=== PATIENT | female | born 1985 | race Hispanic/Latino ===

== ENCOUNTER 2018-11-01 14:31 | Observation (INO) | payer BC ==
[~2018-11-01] VITALS: Ht 160 cm; Wt 72.1 kg
[2018-11-01 15:10] LABS: APPEARANCE,URINE CLOUDY (CLEAR); BILIRUBIN,URINE NEGATIVE (NEGATIVE); COLOR,URINE YELLOW (YELLOW); GLUCOSE, URINE (UA) NEGATIVE (NEGATIVE); KETONES,URINE NEGATIVE (NEGATIVE); LEUKOCYTE ESTERASE ,URINE LARGE (NEGATIVE); NITRATE,URINE NEGATIVE (NEGATIVE); OCCULT BLOOD,URINE NEGATIVE (NEGATIVE); PROTEIN,URINE NEGATIVE (NEGATIVE); UROBILINOGEN,URINE 0.2 mg/dL (0.2-1.0)
[2018-11-01 15:25] LABS: RBC,URINE 0-1 /HPF (0-1)
[2018-11-01 15:27] LABS: BACTERIA,URINE Moderate /HPF (None Seen); SQUAMOUS EPITHELIAL CELL,UR Moderate /HPF (0-2)
[2018-11-01] MEDS ORDERED: LACTATED RINGERS 1000ML 1,000 ML IV SCH (16:00)
[2018-11-01] MEDS ORDERED: TERBUTALINE SULFATE VIAL 1MG/ML SQ SCH (16:00)
== END 2018-11-01 17:52 | disposition home or self-care (01) ==
LOC: LDH 14:31
PROVIDERS: ADMIT Specialist; ATTEND Specialist
DX: O62.9 Abnormality of forces of labor, unspecified (principal); Z3A.35 35 weeks gestation of pregnancy
CPT/HCPCS: 81001; 96372; G0378 ×4; J3105; J7120 ×2; 96360; 96361

== ENCOUNTER 2018-11-14 11:46 | Observation (INO) | payer BC ==
[~2018-11-14] VITALS: Ht 160 cm; Wt 73.5 kg
[2018-11-14 12:55] LABS: APPEARANCE,URINE Clear (CLEAR); BILIRUBIN,URINE Negative (NEGATIVE); COLOR,URINE Yellow (YELLOW); GLUCOSE, URINE (UA) Negative (NEGATIVE); KETONES,URINE Trace mg/dL (NEGATIVE); LEUKOCYTE ESTERASE ,URINE Small (NEGATIVE); NITRATE,URINE Negative (NEGATIVE); OCCULT BLOOD,URINE Negative (NEGATIVE); PROTEIN,URINE Negative (NEGATIVE)
[2018-11-14 13:05] LABS: BACTERIA,URINE Few /HPF (None Seen); RBC,URINE 0-1 /HPF (0-1); SQUAMOUS EPITHELIAL CELL,UR Moderate /HPF (0-2)
[2018-11-14 13:35] LABS: HEMATOCRIT 33.8 % (36-48); MEAN CORPUSCULAR HEMOGLOBIN 26.9 pg (27.0-33.0); MEAN CORPUSCULAR HGB CONC 33.2 g/dL (32.0-36.0); MEAN CORPUSCULAR VOLUME 80.9 fL (79-99); NUCLEATED RED BLOOD CELLS 0.1 % (0.0-0.19); PLATELET COUNT (AUTO) 255 K/uL (130-400); RED BLOOD CELL COUNT(AUTO) 4.18 MIL/uL (4.00-5.50); WHITE BLOOD COUNT (AUTO) 10.3 K/uL (4.8-10.8)
[2018-11-14 14:28] VITALS: BP 120/70
== END 2018-11-14 14:47 | disposition home or self-care (01) ==
LOC: LDH 11:46
PROVIDERS: ADMIT Specialist; ATTEND Specialist
DX: O60.03 Preterm labor without delivery, third trimester (principal); Z3A.36 36 weeks gestation of pregnancy; Z79.899 Other long term (current) drug therapy
CPT/HCPCS: 36415; 81001; 84443; 85027; 93005; G0378 ×4

== ENCOUNTER 2019-10-30 06:56 | Day surgery (SDC) | payer BC ==
[2019-10-29 16:13] LABS: BASOPHILS % (AUTO) 0.4 % (0.0-5.0); EOSINOPHILS % (AUTO) 0.6 % (0.0-8.0); HEMATOCRIT 39.4 % (36-48); LYMPHOCYTES % (AUTO) 36.5 % (21.0-51.0); MEAN CORPUSCULAR HEMOGLOBIN 27.4 pg (27.0-33.0); MEAN CORPUSCULAR HGB CONC 32.2 g/dL (32.0-36.0); MEAN CORPUSCULAR VOLUME 85.1 fL (79-99); MONOCYTES % (AUTO) 4.7 % (3.0-13.0); NEUTROPHILS % (AUTO) 57.6 % (40.0-77.0); PLATELET COUNT (AUTO) 230 K/uL (130-400); RED BLOOD CELL COUNT(AUTO) 4.63 MIL/uL (4.00-5.50); WHITE BLOOD COUNT (AUTO) 10.5 K/uL (4.8-10.8)
[2019-10-29 16:14] VITALS: BP 110/67
[~2019-10-30] VITALS: Ht 160 cm; Wt 62.9 kg
[2019-10-30 07:25] VITALS: BP 100/72
[2019-10-30] MEDS ORDERED: FENTANYL CITRATE PF 50 MCG/1 ML 2ML VIAL ONE (07:51)
[2019-10-30] MEDS ORDERED: PROPOFOL 10 MG/ML 20ML VIAL IV ONE (07:51)
[2019-10-30] MEDS ORDERED: LIDOCAINE PF 2% 5ML ABBOJECT ONE (07:51)
[2019-10-30] MEDS ORDERED: ONDANSETRON HCL 4 MG/2 ML VIAL ONE (07:51)
[2019-10-30] MEDS ORDERED: MIDAZOLAM HCL 1 MG/ML 2ML VIAL ONE (07:51)
[2019-10-30] MEDS ORDERED: LACTATED RINGERS 1000ML 1,000 ML IV SCH (08:00)
[2019-10-30] MEDS ORDERED: EPHEDRINE SULFATE 50 MG/ML AMPULE ONE (08:11)
[2019-10-30] MEDS ORDERED: OXYTOCIN 10 USP UNITS/ML ONE (08:12)
[2019-10-30 09:45] VITALS: BP 98/64
[2019-10-30 10:00] VITALS: BP 96/57
[2019-10-30 10:15] VITALS: BP 106/63
--- NOTE | 2019-10-30 10:25 | NUR ---
DISCHARGE PT DISCHARGED VIA WHEELCHAIR WITH , PT STABLE, NO COMPLAINTS MADE, OB PAD REMAINED DRY, NO BLEEDING NOTED. DISCHARGE INSTRUCTIONS GIVEN TO AND PT, VERBALIZED UNDERSTANDING.
== END 2019-10-30 10:25 | disposition home or self-care (01) ==
LOC: DAH 06:56
PROVIDERS: ATTEND Specialist
DX: O02.1 Missed abortion (principal); Z72.89 Other problems related to lifestyle; Z82.49 Family history of ischemic heart disease and other diseases of the circulatory system; Z83.3 Family history of diabetes mellitus
CPT/HCPCS: 36415; 59820; 85025; 88305; A4215; A4221; A4222; A4223; A4663; A5120; A6260; J2001; J2250; J2405; J2590; J2704; J3010; J3490; J7030; J7120 ×3

== ENCOUNTER 2021-12-20 00:20 | Inpatient (IN) | payer BC ==
[~2021-12-20] VITALS: Ht 160 cm; Wt 73.9 kg
[2021-12-20] MEDS ORDERED: LACTATED RINGERS 1000ML 1,000 ML IV PRN (00:30)
[2021-12-20] MEDS ORDERED: OXYTOCIN-LR 20 UNITS/1000 ML 1,000 ML IV SCH ×2 (00:30→07:00)
[2021-12-20 01:01] LABS: APPEARANCE,URINE CLEAR (CLEAR); BILIRUBIN,URINE NEGATIVE (NEGATIVE); COLOR,URINE YELLOW (YELLOW); GLUCOSE, URINE (UA) NEGATIVE (NEGATIVE); KETONES,URINE NEGATIVE (NEGATIVE); LEUKOCYTE ESTERASE ,URINE NEGATIVE (NEGATIVE); NITRATE,URINE NEGATIVE (NEGATIVE); OCCULT BLOOD,URINE NEGATIVE (NEGATIVE); PROTEIN,URINE NEGATIVE (NEGATIVE); UROBILINOGEN,URINE 0.2 mg/dL (0.2-1.0)
[2021-12-20 01:25] LABS: MEAN CORPUSCULAR HEMOGLOBIN 26.1 pg (27.0-33.0); MEAN CORPUSCULAR HGB CONC 32.5 g/dL (32.0-36.0); MEAN CORPUSCULAR VOLUME 80.2 fL (79-99); RED BLOOD CELL COUNT(AUTO) 3.99 MIL/uL (4.00-5.50); RED CELL DISTRIBUTION WIDTH 13.9 % (11.0-15.5); WHITE BLOOD COUNT (AUTO) 12.1 K/uL (4.8-10.8)
[2021-12-20 01:26] VITALS: BP 116/75
[2021-12-20] MEDS ORDERED: AMPICILLIN 2GM+NS 100ML 100 ML IV SCH (01:30)
[2021-12-20 01:31] VITALS: BP 122/77
[2021-12-20] MEDS ORDERED: ROPIVACAINE 0.2% 100ML VIAL 100 ML EP SCH (02:30)
[2021-12-20] MEDS ORDERED: LACTATED RINGERS 500 ML 500 ML IV PRN (02:30)
[2021-12-20] MEDS ORDERED: EPHEDRINE SULFATE 50 MG/ML AMPULE IVP PRN (02:30)
[2021-12-20] MEDS ORDERED: NALOXONE HCL 0.4 MG/1 ML ML IV PRN (02:30)
[2021-12-20] MEDS ORDERED: AMPICILLIN 1GM+NS 50ML 50 ML IV SCH (05:30)
[2021-12-20] MEDS ORDERED: BENZOCAINE/LANOLIN/ALOE VERA 60 ML AEROSOL TP PRN (15:30)
[2021-12-20] MEDS ORDERED: MEASLES/MUMPS/RUBELLA VACCINE, LIVE 0.5 ML/VIAL SQ PRN (15:30)
[2021-12-20] MEDS ORDERED: LANOLIN 30GM OINTMENT TP PRN (15:30)
[2021-12-20] MEDS ORDERED: DIPH,PERTUSS(ACELL),TET VAC/PF 0.5 ML VIAL IM PRN (15:30)
[2021-12-20] MEDS ORDERED: WITCH HAZEL 1 PAD TP PRN (15:30)
[2021-12-20] MEDS: OXYTOCIN-LR 20 UNITS/1000 ML 1,000 ML IV SCH (16:16)
[2021-12-20] MEDS: IBUPROFEN 600 MG TABLET PO PRN ×2 (17:50→21:06)
[2021-12-20 19:30] VITALS: BP 108/60
[2021-12-20] MEDS: ACETAMINOPHEN 325 MG TAB PO PRN ×2 (20:04→23:35)
[2021-12-20] MEDS: DOCUSATE SODIUM 100 MG CAP PO SCH (21:05)
[2021-12-20 23:23] VITALS: BP 112/68
[2021-12-21 04:00] VITALS: BP 117/71
[2021-12-21] MEDS ORDERED: MIDAZOLAM HCL 1 MG/ML 2ML VIAL ONE (07:57)
[2021-12-21] MEDS ORDERED: SUCCINYLCHOLINE CHLORIDE 20 MG/ML 10 ML VIAL ONE ×3 (07:59→08:07)
[2021-12-21] MEDS ORDERED: LIDOCAINE PF 100MG/5ML (2%) SYRINGE 5ML ONE (07:59)
[2021-12-21] MEDS ORDERED: PROPOFOL 10 MG/ML 20ML VIAL IV ONE ×2 (07:59→08:17)
[2021-12-21] MEDS ORDERED: FENTANYL CITRATE PF 50 MCG/1 ML 2ML VIAL ONE (08:04)
[2021-12-21] MEDS ORDERED: DEXAMETHASONE SOD PHOSPHATE 10MG/ML 1ML VIAL ONE (08:15)
[2021-12-21] MEDS ORDERED: ONDANSETRON 4MG INJ ONE (08:15)
[2021-12-21] MEDS: DOCUSATE SODIUM 100 MG CAP PO SCH ×2 (09:00→10:41)
[2021-12-21] MEDS ORDERED: MEPERIDINE-PF 25 MG/ML SYG ONE (09:00)
[2021-12-21] MEDS ORDERED: MORPHINE 2 MG SYG ONE ×2 (09:05→09:36)
[2021-12-21] MEDS ORDERED: EPHEDRINE SULFATE 50 MG/ML AMPULE IVP PRN (10:00)
[2021-12-21] MEDS ORDERED: NALOXONE HCL 0.4 MG/1 ML ML IVP PRN ×3 (10:00)
[2021-12-21] MEDS ORDERED: ONDANSETRON 4MG INJ IVP PRN (10:00)
[2021-12-21] MEDS ORDERED: DiphenhydrAMINE HCL 50 MG/ML VIAL IVP PRN (10:00)
[2021-12-21 10:20] VITALS: BP 127/75
[2021-12-21] MEDS: IBUPROFEN 600 MG TABLET PO PRN ×2 (10:41→11:39)
[2021-12-21] MEDS: OXYTOCIN-LR 20 UNITS/1000 ML 1,000 ML IV SCH (11:21)
[2021-12-21] MEDS: ACETAMINOPHEN WITH CODEINE 1 TAB TAB PO PRN ×2 (12:38→17:22)
[2021-12-21 16:00] VITALS: BP 121/77
[2021-12-21] MEDS ORDERED: DIPH,PERTUSS(ACELL),TET VAC/PF 0.5 ML VIAL IM ONE (17:00)
== END 2021-12-21 18:30 | disposition home or self-care (01) | DRG 798 ==
LOC: EDH 00:20 → LDH 00:21 → OBSVTOIN 00:21 → EDH 00:29 → WSH 17:01
PROVIDERS: ADMIT Specialist; ATTEND Specialist
PROC: 10E0XZZ Delivery of Products of Conception, External Approach (ICD-10-PCS; principal; 2021-12-20)
PROC: 3E0S3BZ Introduction of Anesthetic Agent into Epidural Space, Percutaneous Approach (ICD-10-PCS; 2021-12-20)
PROC: 00HU33Z Insertion of Infusion Device into Spinal Canal, Percutaneous Approach (ICD-10-PCS; 2021-12-20)
PROC: 0UB70ZZ Excision of Bilateral Fallopian Tubes, Open Approach (ICD-10-PCS; 2021-12-21)
DX: O69.1XX0 Labor and delivery complicated by cord around neck, with compression, not applicable or unspecified (principal); Z37.0 Single live birth; Z3A.38 38 weeks gestation of pregnancy; Z30.2 Encounter for sterilization
CPT/HCPCS: 36415; 81003; 85027; 86592; 86850; 86900; 86901; 87340; 90715; A4314; G0378; J0290; J0330; J1100; J2001; J2175; J2250; J2405; J2590; J2704; J2795; J3010; J7120